=== PATIENT | female | born 1985 ===

== ENCOUNTER 2025-06-27 09:50 | Emergency (ER) | payer SELFPAY ==
[~2025-06-27] VITALS: Ht 149.9 cm; Wt 54.9 kg
[2025-06-27 09:56] VITALS: BP 169/115; PULSE 76; RESP 16; TEMP 97.6; O2SAT 99
--- NOTE | 2025-06-27 16:26 | Physician Documentation ---
History of Present Illness ~ Chief Complaint: Hypertension Stated Complaint: HIGH BP/MED REQUEST Time Seen by MD: 10:18 OK to notify your PCP?: Yes Source: patient Mode of Arrival: POV Exam Limitations: no limitations HPI 39 y/o female with high blood pressure here due to concern about her blood pressure and requesting medication. Patient had no acute concerns. Medication Reconciliation Allergies: Coded Allergies: No Known Allergies (Unverified , 06/27/25) Review of Systems All Other Systems at this time: Reviewed and Negative Physical Exam Vital Signs: Temperature: 97.6, Heart Rate: 76, Respiratory Rate: 16, BP: 169/115, Pulse Oximetry: 99, Weight: 54.900 Oxygen Flow Rate: 0 Physical Exam General Appearance: Alert, WD/WN. NAD. HEENT: NCAT, PERRL, EOMI. Neck: Supple, trachea midline. Lungs: Breathing unlabored Extremities: Normal inspection. No edema. Skin: Warm/dry, normal color Neurological: Alert and oriented x4, normal gait. Psychiatric: Affect congruent with mood. Progress Results/Orders Results/Orders Vital Signs 06/27/25 09:56 Temp 97.6 Pulse 76 Resp 16 B/P (MAP) 169/115 Pulse Ox 99 O2 Flow Rate 0 Medical Decision Making Additional information obtaine: N/A Findings n/a Differential Dx:Considerations: Include CHF, Include HTN, essential, Include HTN, accelerated, Include HTN, malignant, Include HTN, encephalopathy, Include medical noncompliance, Include medication withdrawal, Include pulmonary edema, Include renal failure, Include -induced Departure Time of Disposition: 11:00 Disposition: 07 LEFT AWOL/ELOPED Impression: Primary Impression: Elevated blood pressure reading Condition: Fair Additional Instructions: Patient was seen and examined in the form of medical screening exam as I was dealing with a critically ill patient. Patient reported she was going to [facility] as she did not feel that she was getting the attention she deserved. Based off of my evaluation she was stable to wait for further evaluation and treatment; however, patient clearly disagreed with this and thus left stating she was headed to [facility]. Referrals: NO PRIMARY CARE PROVIDER (PCP) Education Educated: Patient Educated regarding: other (educated her that based off of my exam she was stable for further evaluation in the ER ) Signature Scribe Signature: x Attestation: KEKE Holman Jun 27, 2025 16:26
== END 2025-06-27 11:00 | disposition left against medical advice (07) ==
LOC: ER 09:51
DX: R03.0 Elevated blood-pressure reading, without diagnosis of hypertension (principal)
CPT/HCPCS: 99282